=== PATIENT | female | born 1965 | race Caucasian/White ===

== ENCOUNTER 2018-08-17 08:42 | Emergency (ER) | payer OTHER ==
[~2018-08-17] VITALS: Ht 162.6 cm; Wt 96.2 kg
[2018-08-17 09:41] LABS: HEMATOCRIT 39.2 % (37.0-47.0); HEMOGLOBIN 13.3 gm/dL (12.0-15.0); MCH 28.1 pg (26.0-34.0); MCHC 33.9 g/dL (28.0-37.0); MCV 82.8 fL (80.0-100.0); MPV 8.5 fl. (7.2-11.1); NUCLEATED RBCS 0 /100WBC; PLATELET COUNT* 249 thou/uL (150-400); RBC 4.74 mil/uL (4.20-5.00); RDW-CV 13.8 % (10.5-14.5); WBC 8.8 thou/uL (4.0-11.0)
[2018-08-17 09:51] LABS: ANION GAP 7 mmol/L (7-16); BUN 24 mg/dL (7-18); CALCIUM 9.2 mg/dL (8.5-10.1); CHLORIDE 98 mmol/L (98-107); CO2 31 mmol/L (21-32); CREATININE 1.1 mg/dL (0.6-1.3); GLUCOSE 305 mg/dL (70-99); POTASSIUM 3.9 mmol/L (3.5-5.1); SODIUM 136 mmol/L (136-145)
[2018-08-17 09:54] LABS: ALKALINE PHOSPHATASE 127 U/L (46-116); LIPASE 127 U/L (73-393); SGOT 18 U/L (15-37); SGPT 22 U/L (30-65); TOTAL BILIRUBIN 0.4 mg/dL (<0.1-1.0); TOTAL PROTEIN 6.9 g/dL (6.4-8.2); TROPONIN-I LEVEL <0.06 ng/mL (<0.06)
[2018-08-17 10:22] LABS: ABSOLUTE LYMPHOCYTES 0.5 thou/uL (0.8-5.3); ABSOLUTE MONOCYTES 0.1 thou/uL (0.0-1.2); ABSOLUTE NEUTROPHILS 8.2 thou/uL (1.6-8.1); PLATELET ESTIMATE ADEQUATE
[2018-08-17] MEDS ORDERED: ZOFRAN ODT4 MG DISSOLVE (11:57)
[2018-08-17 13:37] VITALS: BP 190/84
--- NOTE | 2018-08-17 14:12 | EKG ---
[place] [address] ELECTROCARDIOGRAM REPORT Name: [facility]ANDA [id number] Ad[facility]: 08/17/18 Attend Phys: Discharge: 08/17/18 Date of : 69 Report #: [id number] THIS REPORT FOR: //name// [facility] ED Test Date: 2018-08-17 Test Time: 10:04:31 Pat Name: WILVER BANDA Department: Room: Gender: F [employer]: POOL : 1965 Requested By: Sotero Prince Order Number: [id number] MD: Mor Gil Measurements Intervals Harvey Rate: 105 P: 52 WI: 169 QRS: 89 QRSD: 84 T: -36 QT: 335 QTc: 443 Interpretive Statements Sinus tachycardia Ventricular premature complex Borderline repolarization abnormality Compared to ECG 10/05/2008 09:58:53 Ventricular premature complex(es) now present Sinus rate has increased Electronically Signed On 08-17-2018 14:12:17 MDS NURSE by Mor Gil [email or web address] <ELECTRONICALLY SIGNED> By: Mor Gil MD, [facility] 08/17/18 1412 1004 1004 Mor Gil MD, FACC /EPI
== END 2018-08-17 13:39 | disposition home or self-care (01) ==
LOC: M.ERS 08:42
PROVIDERS: Emergency Medicine Emergency Medical Services
DX: R11.2 Nausea with vomiting, unspecified (principal); R51 Headache; E11.40 Type 2 diabetes mellitus with diabetic neuropathy, unspecified; I10 Essential (primary) hypertension; Z87.891 Personal history of nicotine dependence; Z88.2 Allergy status to sulfonamides; Z88.8 Allergy status to other drugs, medicaments and biological substances; Z98.890 Other specified postprocedural states; Z90.710 Acquired absence of both cervix and uterus; Z87.442 Personal history of urinary calculi